=== PATIENT | female | born 1995 | race Caucasian/White ===

== ENCOUNTER 2017-03-17 01:16 | Emergency (ER) | payer SELFPAY ==
[~2017-03-17] VITALS: Ht 165.1 cm; Wt 104.3 kg
[2017-03-17 01:45] LABS: BASOPHILS % (AUTO) 0 % (0-10); EOSINOPHILS # (AUTO) 0.4 10^3/uL (0.0-0.3); EOSINOPHILS % (AUTO) 3 % (0-10); LYMPHOCYTES # (AUTO) 4.2 X 10^3 (1.0-4.0); LYMPHOCYTES % (AUTO) 33 % (12-44); MEAN CORPUSCULAR HEMOGLOBIN 28 PG (25-34); MEAN CORPUSCULAR HGB CONC 33 G/DL (32-36); MEAN CORPUSCULAR VOLUME 84 FL (80-99); MEAN PLATELET VOLUME 9.7 FL (7.4-10.4); MONOCYTES # (AUTO) 0.9 X 10^3 (0.0-1.0); MONOCYTES % (AUTO) 7 % (0-12); NEUTROPHILS # (AUTO) 7.2 X 10^3 (1.8-7.8); NEUTROPHILS % (AUTO) 57 % (42-75); PLATELET COUNT 381 10^3/uL (130-400); RED CELL DISTRIBUTION WIDTH 14.9 % (10.0-14.5); WHITE BLOOD COUNT 12.7 10^3/uL (4.3-11.0)
--- NOTE | 2017-03-17 01:59 | ED GI ---
General Chief Complaint: -Female Stated Complaint: LEFT SIDE PAIN,SPOTTING,POSS 8 WKS PREG Nursing Triage Note: PT TO ED 7 W/ C/O LLQ PAIN ET SPOTTING X3 DAYS WHEN SHE WIPES. DOES REPORT N/ V. NO OTHER C/O VOICED Sepsis Screen: No Definite Risk Source of Information: Patient Exam Limitations: No Limitations History of Present Illness Time Seen By Provider: 01:24 Initial Comments This 22-year-old young lady presents to the emergency room with complaints of left-sided abdominal pain, nausea and vomiting, and vaginal spotting. She rates her pain as 5/10. She denies diarrhea, dysuria, constipation. Symptoms have been present for about 3 days. She reports having multiple positive urine tests at home. She believes her LMP was approximately January 31. She has no local provider. She works for a [employer] and [place] [facility]. Allergies and Home Medications Allergies Coded Allergies: No Known Drug Allergies (Unverified , 03/17/17) Home Medications Cephalexin 500 Mg Capsule, 500 MG PO QID, #28 Prescribed by: RIN LERNER on 03/17/17 0456 Clindamycin HCl 300 Mg Capsule, 300 MG PO BID, #14 Prescribed by: RIN LERNER on 03/17/17 0456 Doxylamine/Pyridoxine HCl 1 Each Tablet.dr, 2 EACH PO HS PRN for NAUSEA/VOMITING -1ST LINE, #20 Prescribed by: RIN LERNER on 03/17/17 0456 Review of Systems Constitutional: no symptoms reported EENTM: No Symptoms Reported Respiratory: No Symptoms Reported Cardiovascular: No Symptoms Reported Gastrointestinal: See HPI Genitourinary: See HPI Musculoskeletal: no symptoms reported Skin: no symptoms reported Psychiatric/Neurological: No Symptoms Reported Endocrine: No Symptoms Reported Hematologic/Lymphatic: No Symptoms Reported Past Dydxvnc-Pbfoje-Cmztdu Hx Patient Social History Alcohol Use: Denies Use Recreational Drug Use: No Smoking Status: Current Everyday Smoker Type Used: Cigarettes Recent Foreign Travel: No Contact w/Someone Who Travel: No Recent Infectious Disease Expo: No Recent Hopitalizations: No Physical Abuse: No Sexual Abuse: No Mistreated: No Fear: No Surgeries History of Surgeries: Yes Surgeries: Adenoidectomy, Appendectomy, Gallbladder, Tonsillectomy Respiratory History of Respiratory Disorde: No Cardiovascular History of Cardiac Disorders: No Neurological History of Neurological Disord: No Reproductive System : Yes Last Menstrual Period: Jan 31, 2017 Hx : 3 Hx Para: 2 Genitourinary History of Genitourinary Disor: No Gastrointestinal History of Gastrointestinal Di: No Musculoskeletal History of Musculoskeletal Dis: No Endocrine History of Endocrine Disorders: No HEENT History of HEENT Disorders: No Cancer History of Cancer: No Psychosocial History of Psychiatric Problem: No Suicide Risk Score: 0 Integumentary History of Skin or Integumenta: No Physical Exam Vital Signs Capillary Refill : Less Than 3 Seconds General Appearance: WD/WN, no apparent distress Neck: normal inspection Respiratory: lungs clear, normal breath sounds, no respiratory distress, no accessory muscle use Cardiovascular: regular rate, rhythm, no edema, no murmur Gastrointestinal: normal bowel sounds, soft, tenderness (mild left side) Extremities: normal inspection, no pedal edema Pelvic: normal external exam, other (cervical and vaginal tissue appear normal. There is a greenish mucousy discharge within the vagina. No cervical motion tenderness. 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7 7.4-10.4 FL Neutrophils (%) (Auto) 57 42-75 % Lymphocytes (%) (Auto) 33 12-44 % Monocytes (%) (Auto) 7 0-12 % Eosinophils (%) (Auto) 3 0-10 % Basophils (%) (Auto) 0 0-10 % Neutrophils # (Auto) 7.2 1.8-7.8 X 10^3 Lymphocytes # (Auto) 4.2 H 1.0-4.0 X 10^3 Monocytes # (Auto) 0.9 0.0-1.0 X 10^3 Eosinophils # (Auto) 0.4 H 0.0-0.3 10^3/uL Basophils # (Auto) 0.0 0.0-0.1 10^3/uL Urine Color YELLOW Urine Clarity SLIGHTLY CLOUDY Urine pH 6 5-9 Urine Specific [place] 1.025 H 1.016-1.022 Urine Protein NEGATIVE NEGATIVE Urine Glucose (UA) NEGATIVE NEGATIVE Urine Ketones NEGATIVE NEGATIVE Urine Nitrite NEGATIVE NEGATIVE Urine Bilirubin NEGATIVE NEGATIVE Urine Urobilinogen NORMAL NORMAL MG/DL Urine Leukocyte Esterase 3+ H NEGATIVE Urine RBC (Auto) 1+ H NEGATIVE Urine RBC 0-2 /HPF Urine WBC 10-25 H /HPF Urine Squamous Epithelial Cells 2-5 /HPF Urine Crystals NONE /LPF Urine Bacteria FEW H /HPF Urine Casts NONE /LPF Urine Mucus MODERATE H /LPF Urine Culture Indicated YES Urine Test POSITIVE NEGATIVE Human Chorionic Gonadotropin, Quant 83300 H <5 MIU/ML Chlamydia DNA Probe POSITIVE H Negative Neisseria gonorrhoeae DNA Probe Negative Negative Micro Results Microbiology 03/17/17 Genital Culture - Final, Complete Gardnerella Vaginalis Normal sina 03/17/17 COLLINS Preparation - Final, Complete 03/17/17 Wet Prep - Final, Complete 03/17/17 Urine Culture - Final, Complete Escherichia Coli My Orders Orders - RIN HORN MD Cbc With Automated Diff (03/17/17 01:23) Hcg,Qualitative Urine (03/17/17 01:23) Abo Rh Type (03/17/17 01:23) Ua Culture If Indicated (03/17/17 01:23) Hcg,Quantitative (03/17/17 02:11) Urine Culture (03/17/17 01:53) Wet Prep (03/17/17 02:56) Neisseria Gonorrhea Dna (03/17/17 02:56) Chlamydia Dna (03/17/17 02:56) Genital Culture (03/17/17 02:56) Collins Prep (03/17/17 02:56) Ceftriaxone Injection (Rocephin Injectio (03/17/17 03:30) Lidocaine 1% Injection (Xylocaine 1% Inj (03/17/17 03:30) Azithromycin Tablet (Zithromax Tablet) (03/17/17 03:30) Us Ob Single Fetus<14 [id number] (03/17/17 02:56) Im Injection Antibiotic Ed (03/17/17 ) Medications Given in ED Vital Signs/I&O Blood Pressure Mean: 95 Progress Note : Progress Note Pelvic exam was performed. No significant abnormalities were found on exam but WBCs were seen on the preliminary culture. Clue cells were also observed and BV was presumed. Patient was treated with azithromycin and Rocephin. She was given a prescription for clindamycin and Keflex for further treatment of BV and urinary tract infection. Patient also had urinary tract infection based on urinalysis. Ultrasound was performed and [facility] report was reviewed. There was a viable single intrauterine gestation at about 6 weeks. There is also a small subchorionic bleed. Patient was advised to establish with an caddymaster as soon as possible. She was advised no intercourse or anything intravaginally until cleared by physician. Diclegis was prescribed for her nausea and vomiting. Diagnostic Imaging Diagonstic Imaging: Ultrasound Plain Films/CT/US/NM/MRI: pelvis Comments Ultrasound report reviewed. There is a small subchorionic bleed and a single live intrauterine gestation at about 6 weeks. Departure Impression Impression: Primary Impression: Urinary tract infection Qualified Codes: N39.0 - Urinary tract infection, site not specified Additional Impressions: Subchorionic bleed Qualified Codes: O41.8X10 - Other specified disorders of amniotic fluid and membranes, first trimester, not applicable or unspecified; O46.8X1 - Other antepartum hemorrhage, first trimester Bacterial vaginosis Disposition: HOME, SELF-CARE Condition: Improved Departure-Patient Inst. Decision time for Depature: 04:50 Referrals: NO,LOCAL PHYSICIAN (PCP) Primary Care Physician Patient Instructions: Urinary Tract Infection, Adult (DC) Add. Discharge Instructions: Drink plenty of clear liquids. Complete your antibiotics as prescribed. Follow -up on your culture results next week by establishing with a primary care or obstetrical provider or by calling the emergency room. Please establish with an obstetrical provider to care for your as soon as possible. Refrain from sexual intercourse or anything vaginally until cleared by a physician. Return to care if symptoms worsen. Try Diclegis as prescribed for nausea and vomiting. If this is not affordable, substitute with [id number] Unisom. All discharge instructions reviewed with patient and/or family. Voiced understanding. Scripts Doxylamine/Pyridoxine HCl (Diclegis Dr 10-10 mg Tablet) 1 Each Tablet.dr 2 EACH PO HS Y for NAUSEA/VOMITING-1ST LINE, #20 TAB Prov: RIN HORN MD 03/17/17 Cephalexin (Keflex) 500 Mg Capsule 500 MG PO QID, #28 CAP Prov: RIN HORN MD 03/17/17 Clindamycin HCl (Clindamycin HCl) 300 Mg Capsule 300 MG PO BID, #14 CAP Prov: RIN HORN MD 03/17/17 RIN HORN MD Mar 17, 2017 1:59 am
[2017-03-17 02:04] LABS: BILIRUBIN,URINE NEGATIVE (NEGATIVE); KETONES,URINE NEGATIVE (NEGATIVE); LEUKOCYTE ESTERASE ,URINE 3+ (NEGATIVE); NITRITE,URINE NEGATIVE (NEGATIVE); PH,URINE 6 (5-9); PROTEIN,URINE NEGATIVE (NEGATIVE); UROBILINOGEN,URINE NORMAL (NORMAL)
[2017-03-17] MEDS ORDERED: LIDOCAINE 1% INJ 20 ML (XYLOCAINE) VIAL INJ ONE (03:30)
[2017-03-17] MEDS ORDERED: cefTRIAXone 1 GM (ROCEPHIN) VIAL IM ONE (03:30)
[2017-03-17] MEDS ORDERED: AZITHROMYCIN 250 MG TAB (ZITHROMAX) PO ONE (03:30)
[2017-03-17] MEDS ORDERED: DOXY1TAB3 PO (04:56)
[2017-03-17] MEDS ORDERED: CLIN300C11 PO (04:56)
[2017-03-17] MEDS ORDERED: CEPH-507 PO (04:56)
[2017-03-17 04:58] VITALS: BP 128/79
--- NOTE | 2017-03-17 06:35 | Diagnostic Imaging Report ---
PROCEDURE: US OB SINGLE FETUS <14 WKS. TECHNIQUE: Multiple real-time grayscale images were obtained over the gravid uterus in various projections. INDICATION: Spotting x3 days. FINDINGS: There is presence of intrauterine fluid collection compatible with a gestational sac. A single live intrauterine is demonstrated with pole measuring 0.46 cm for an estimated age of 6 weeks 2 days. cardiac activity 112 beats per minutes. Small subchorionic bleed is present measuring approximately 14 mm. Nonvisualization of the left ovary. Right ovary appearing unremarkable. IMPRESSION: Early viable intrauterine with estimated age of approximately 6 weeks 2 days. Small subchorionic bleed does appear to be present. A preliminary report was provided by [facility]. Dictated by: Dictated on workstation # [id number]
== END 2017-03-17 04:58 | disposition home or self-care (01) ==
LOC: ER 01:21
DX: O23.41 Unspecified infection of urinary tract in pregnancy, first trimester (principal); O23.591 Infection of other part of genital tract in pregnancy, first trimester; N76.0 Acute vaginitis; O20.8 Other hemorrhage in early pregnancy; O99.331 Smoking (tobacco) complicating pregnancy, first trimester; F17.210 Nicotine dependence, cigarettes, uncomplicated; Z90.49 Acquired absence of other specified parts of digestive tract; Z90.89 Acquired absence of other organs; Z3A.01 Less than 8 weeks gestation of pregnancy
CPT/HCPCS: 36415; 76801; 81000; 84702; 84703; 85025; 86900; 86901; 87070; 87077; 87088; 87186; 87210; 87220; 87491; 87591; 96372; 99284